=== PATIENT | male | born 1990 | race Caucasian/White ===

== ENCOUNTER 2024-12-21 12:54 | Emergency (ER) | payer MEDICAID ==
[~2024-12-21] VITALS: Ht 152.4 cm; Wt 39.8 kg
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
[2024-12-21 13:48] VITALS: BP 143/75; PULSE 73; RESP 17; TEMP 98.7; O2SAT 100
[2024-12-21] MEDS: KETOROLAC TROMETH 30 MG/ML 1ML VIAL IM ONE (13:51)
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
[2024-12-21] MEDS ORDERED: IBU600T PO (15:01)
== END 2024-12-21 15:17 | disposition home or self-care (01) ==
LOC: ER 12:54
DX: S29.011A Strain of muscle and tendon of front wall of thorax, initial encounter (principal); S50.311A Abrasion of right elbow, initial encounter; S00.81XA Abrasion of other part of head, initial encounter; Y08.89XA Assault by other specified means, initial encounter; Y93.9 Activity, unspecified; Y92.89 Other specified places as the place of occurrence of the external cause; Y99.8 Other external cause status
CPT/HCPCS: 71101; 96372; 99283; J1885